=== PATIENT | female | born 1935 | race Caucasian/White ===

== ENCOUNTER 2016-12-24 09:10 | Emergency (ER) | payer OTHER, BC ==
[~2016-12-24] VITALS: Ht 160 cm; Wt 66.4 kg
[2016-12-24] VITALS (8 sets, daily range): BP systolic 108–144; BP diastolic 65–86
[~2016-12-24 09:10] MED LIST: ASPIRIN81 M2 PO; CALCIUM PO; ELMIRON100 MG PO; FOLIC ACID PO; GLUCOSAMINE CH1 EAC4 PO; KEFLEX500 MG PO; MAGNESIUM WITH ZINC; NEXIUM40 MG PO; TURMERIC500 MG PO; VITAMIN B12-FO1 EACH PO; VITAMIN B6 PO; VITAMIN D35000 UNIT PO; VITAMIN E1000 UNIT PO
[2016-12-24 10:24] LABS: HEMATOCRIT 35.5 % (36.0-46.0); MCH 28.7 PG (29.0-34.0); MCHC 32.1 G/DL (30.0-36.0); MCV 89.4 FL (83-99); MEAN PLAT.VOLUME 8.5 uM^3 (9.5-12.4); RBC DIS.WIDTH-CV 12.5 % (11.8-14.6); RBC DIS.WIDTH-SD 40.1 % (39-53); RED BLOOD COUNT 3.97 M/uL (3.80-5.20)
[2016-12-24 10:26] LABS: PLATELET COUNT 581 K/uL (156-360); WHITE BLOOD COUNT 12.8 K/uL (4.1-10.2)
[2016-12-24 10:35] LABS: CHLORIDE 104 mEq/L (99-109); POTASSIUM 4.1 mEq/L (3.7-5.4); SODIUM 140 mEq/L (136-147)
[2016-12-24 10:37] LABS: GLUCOSE 96 mg/dL (70-99)
[2016-12-24 10:38] LABS: ANION GAP 7 MEQ/L (2-14)
[2016-12-24 10:41] LABS: GFR ESTIMATE (CALCULATED) > 59 mL/min/
[2016-12-24 10:42] LABS: UREA NITROGEN (BUN) 18 mg/dL (9-23)
[2016-12-24] MEDS ORDERED: DILAUDID2 MG PO (11:56)
== END 2016-12-24 16:37 | disposition short-term general hospital (02) ==
LOC: EME → EDBD 09:10 → EME 16:37
PROVIDERS: Emergency Medicine
DX: G89.18 Other acute postprocedural pain (principal); M25.551 Pain in right hip; M79.604 Pain in right leg; Z98.890 Other specified postprocedural states
CPT/HCPCS: 72100; 73502; 80048; 85027; 93971; J1100; J1885; J2270; J2405; J3010